=== PATIENT | female | born 1975 | race Hispanic/Latino ===

== ENCOUNTER 2019-02-12 08:25 | Emergency (ER) | payer OTHER ==
[2019-02-12 09:11] LABS: BASOPHILS % (AUTO) 0.2 % (0.0-5.0); EOSINOPHILS % (AUTO) 2.5 % (0.0-8.0); HEMATOCRIT 37.1 % (36-48); LYMPHOCYTES % (AUTO) 30.7 % (21.0-51.0); MEAN CORPUSCULAR HGB CONC 32.1 g/dL (32.0-36.0); MEAN CORPUSCULAR VOLUME 84.2 fL (79-99); MONOCYTES % (AUTO) 12.5 % (3.0-13.0); NEUTROPHILS % (AUTO) 54.1 % (40.0-77.0); PLATELET COUNT (AUTO) 260 K/uL (130-400); RED CELL DISTRIBUTION WIDTH 15.7 % (11.0-15.5)
[2019-02-12 09:15] LABS: BILIRUBIN,URINE Negative (NEGATIVE); COLOR,URINE Dark Yellow (YELLOW); GLUCOSE, URINE (UA) Negative (NEGATIVE); HCG,QUAL RESULT NEGATIVE (NEGATIVE); KETONES,URINE Trace mg/dL (NEGATIVE); LEUKOCYTE ESTERASE ,URINE Small (NEGATIVE); NITRATE,URINE Negative (NEGATIVE); OCCULT BLOOD,URINE Large (NEGATIVE); PH,URINE 7.5 (5.0-8.0); PROTEIN,URINE Trace mg/dL (NEGATIVE)
[2019-02-12 09:16] LABS: CREATININE 0.8 mg/dL (0.5-1.5); POTASSIUM 3.8 mmol/L (3.5-5.1)
[2019-02-12 09:18] LABS: APPEARANCE,URINE CLOUDY (CLEAR)
[2019-02-12 09:19] LABS: BACTERIA,URINE Rare /HPF (None Seen); SQUAMOUS EPITHELIAL CELL,UR Few /HPF (0-2); WBC,URINE 0-1 /HPF (0-1)
[2019-02-12 09:23] LABS: ALBUMIN 4.4 g/dL (3.5-5.0); BILIRUBIN,TOTAL 0.5 mg/dL (0.2-1.0)
== END 2019-02-12 10:56 | disposition home or self-care (01) ==
LOC: EDH 08:25
DX: K29.00 Acute gastritis without bleeding (principal); R10.11 Right upper quadrant pain; M19.90 Unspecified osteoarthritis, unspecified site; Z98.51 Tubal ligation status
CPT/HCPCS: 36415; 76705; 80053; 81001; 81025; 82150; 83690; 85025; 93005

== ENCOUNTER 2019-07-17 08:18 | Emergency (ER) | payer OTHER ==
[2019-07-17] MEDS ORDERED: CEFTRIAXONE SODIUM 1 GM ONE (09:04)
[2019-07-17] MEDS ORDERED: SODIUM CHLORIDE 0.9% 50 ML IV ONE (09:04)
== END 2019-07-17 09:45 | disposition home or self-care (01) ==
LOC: EDH 08:18
DX: S61.531A Puncture wound without foreign body of right wrist, initial encounter (principal); S51.831A Puncture wound without foreign body of right forearm, initial encounter; M06.9 Rheumatoid arthritis, unspecified; D84.9 Immunodeficiency, unspecified; Z98.51 Tubal ligation status; Z88.5 Allergy status to narcotic agent; W54.0XXA Bitten by dog, initial encounter; Y93.89 Activity, other specified; Y92.89 Other specified places as the place of occurrence of the external cause; Y99.8 Other external cause status
CPT/HCPCS: 29125; 73090; 73110; 96374; 99284; J0696